=== PATIENT | male | born 1960 | race African-American/Black ===

== ENCOUNTER 2025-08-10 11:22 | Emergency (ER) | payer OTHER, MEDICAID ==
[~2025-08-10] VITALS: Ht 177.8 cm; Wt 113.0 kg
[2025-08-10] MEDS: METHYLPREDNISOLONE SOD SUCC 125MG/2ML (ACT-O-VIAL) IV ONE (11:47)
[2025-08-10] MEDS: MAGNESIUM 2 G PREMIX 50 ML IV ONE (11:47)
[2025-08-10] MEDS: IPRATROPIUM BROMIDE (0.02%) 0.5MG/2.5ML NEB HHN SCH (11:52)
[2025-08-10] MEDS: ALBUTEROL (0.083%) 2.5MG/3ML NEB HHN SCH (11:53)
[2025-08-10 11:54] LABS: BASOPHILS % 0.8 % (0.0-2.0); EOSINOPHILS % 6.0 % (0.0-5.0); HEMATOCRIT. 40.8 % (42.0-52.0); HEMOGLOBIN. 13.9 g/dL (14.0-18.0); LYMPHOCYTES % 24.8 % (20.0-50.0); MEAN PLATELET VOLUME 9.7 fl (7.4-10.4); MONOCYTES % 8.3 % (2.0-8.0); NEUTROPHILS % 60.1 % (40.0-76.0); PLATELET 171 x1000/uL (130-400); RED BLOOD CELL COUNT 4.37 mill/uL (4.7-6.1); RED CELL DISTRIBUTION WIDTH 13.9 % (11.6-14.6)
[2025-08-10 11:55] VITALS: PULSE 86; RESP 18; O2SAT 96
[2025-08-10 12:09] LABS: CREATININE 1.0 mg/dL (0.6-1.3); UREA NITROGEN BLOOD 9 mg/dL (9-23)
[2025-08-10 12:10] LABS: TROPONIN I HIGH SENSITIVITY 11 ng/L (3.0-53)
[2025-08-10 12:39] VITALS: O2SAT 95
[2025-08-10] MEDS ORDERED: LORAZEPAM 0.5MG TABLET PO ONE (13:00)
[2025-08-10 13:20] VITALS: RESP 23
[2025-08-10 15:40] VITALS: BP 141/89; PULSE 96; RESP 20; TEMP 37.2; O2SAT 95
== END 2025-08-10 16:02 | disposition left against medical advice (07) ==
LOC: ER 11:47 → EDBEDREQSVC 13:51 → EDBEDREQ 13:51 → EDBEDREQTM 13:51 → CANBEDREQ 15:49 → ER 16:02
DX: J45.901 Unspecified asthma with (acute) exacerbation (principal); E11.9 Type 2 diabetes mellitus without complications; I10 Essential (primary) hypertension; Z20.822 Contact with and (suspected) exposure to COVID-19; Z79.84 Long term (current) use of oral hypoglycemic drugs
CPT/HCPCS: 99285; 96365; 71045; 96375; 87426; 80048; 85025; 84484; 36415; 94660; 93005; 98960; 94644; J2919; J3475; 94070; 94640; 94664